=== PATIENT | male | born 1985 | race Caucasian/White ===

== ENCOUNTER 2020-02-01 10:25 | Emergency (ER) | payer SELFPAY ==
[2020-02-01] VITALS (23 sets, daily range): BP systolic 129–157; BP diastolic 93–110; PULSE 65–109; RESP 18; TEMP 37.2; O2SAT 87–100
--- NOTE | ~2020-02-01 | US_ITS ---
EXAMINATION: US abdomen limited DATE: 02/01/2020 12:20 INDICATION: Abdominal pain. Vomiting. TECHNIQUE: Multiple grayscale and Doppler ultrasound images of the abdomen were obtained. COMPARISON: None FINDINGS: The visualized portions of the head and body of the pancreas are normal. There is diffuse h epatic steatosis. There is normal flow in main portal vein. The gallbladder is normal in size and con tains sludge. No gallstones or gallbladder wall thickening. There was no sonographic Boudreaux sign. The common duct is dilated to 9 mm. IMPRESSION: 1. Mild dilatation of the common duct. 2. Gallbladder sludge. No evidence of acute cholecystitis. 3. Diffuse hepatic steatosis. Reviewed, dictated and finalized at location A.
--- NOTE | 2020-02-01 10:41 | ED.NAVMDI ---
HPI - Nausea/Vomiting/Diarrhea General Chief complaint: Nausea/Vomiting/Diarrhea Stated complaint: vomiting Time Seen by Provider: 02/01/20 10:34 Source: patient Mode of arrival: ambulatory Limitations: no limitations History of Present Illness HPI Narrative: This patient is a 34 year old male who presents for evaluation of nausea and vomiting. He states for the past month he has had daily nausea and vomiting. This generally occurs in the morning after having a lot of belching. Generally he will have vomiting in the morning, and then he states he feels better. He will be able to eat and not having any issues the rest of the day. Over the past 2 days he has had nonstop nausea and vomiting. He is unable to keep anything day. He has associated upper abdominal crampin. He has not gotten any evaluation prior to today for his symptoms. HE denies fever, diarrhea, chest xray, or shortness of breath. He denies headache, dizziness. MD elicited complaint: nausea and vomiting Related Data Allergies Allergy/AdvReac Type Severity Reaction Status Date / Time No Known Allergies Allergy Verified 02/01/20 10:28 Review of Systems Review of Systems: All systems reviewed & are unremarkable except as noted in HPI and below Constitutional: Constitutional: Reports chills, Denies fever(s) and Denies weakness ENT: Denies dizziness, Denies nasal congestion and Reports sore throat (from vomiting) Cardiovascular: Cardiovascular: Denies chest pain Respiratory: Respiratory: Denies cough and Denies dyspnea Gastrointestinal: Gastrointestinal: Reports abdominal pain, Denies constipation, Denies diarrhea, Reports nausea and Reports vomiting Genitourinary: Genitourinary: Denies hematuria and Denies oliguria Musculoskeletal: Musculoskeletal: Denies back pain PMF Past Medical History Medical History (Updated 02/01/20 @ 14:50 by Pina Lai MD) Patient denies medical problems Surgical History Surgical History (Updated 02/01/20 @ 10:42 by Pina Lai MD) History of open reduction and internal fixation (ORIF) procedure Social History Social History (Updated 02/01/20 @ 10:42 by Pina Lai MD) Smoking status: Current some day smoker Alcohol intake: current Substance use: never Gender identity (if verbalized by the patient): Male Exam Narrative: Exam Narrative: GENERAL: Well-appearing, well-nourished, and in no acute distress. HEAD: Normocephalic, atraumatic EYES: PERRLA and EOMI, conjunctiva clear without discharge THROAT:Mucous membranes moist, Oropharynx normal without erythema, exudate, peritonsillar swelling or fluctuance NECK: Supple, without lymphadenopathy or mass RESPIRATORY: No respiratory distress, Airway patent, Respirations non-labored, Clear to auscultation without rales, rhonchi or wheeze HEART: Regular rate and rhythm. No murmur heard. Normal peripheral pulses. ABDOMEN: Soft, epigastric tenderness, nondistended, normal active bowel sounds. No masses. No rebound or guarding, No organomegaly. EXTREMITIES: No edema, normal strength with full range of motion. SKIN: Warm, dry, normal color without rash NEURO: Alert and oriented x3. CN 2-12 grossly intact. No focal deficits. PSYCH: Normal mood and affect. Course Consultations Consultation #1: PAtient states he feels better. I Discussed case and labs with DR. Tse. HE states patient can follow up as outpatient. Date: 02/01/20 Time: 13:45 Vital Signs Vital signs: Vital Signs Temperature 99.0 F 02/01/20 10:29 Pulse Rate 102 H 02/01/20 10:29 Respiratory Rate 18 02/01/20 10:29 Blood Pressure 157/108 H 02/01/20 10:29 Pulse Oximetry 100 02/01/20 10:29 Temperature 99.0 F 02/01/20 10:29 Pulse Rate 109 H 02/01/20 11:19 Respiratory Rate 18 02/01/20 10:29 Blood Pressure 142/100 H 02/01/20 12:01 Pulse Oximetry 99 02/01/20 13:00 MDM - Nausea/Vomiting/Diarrhea Lab Data Attestation: I reviewed the patient
[2020-02-01 10:55] LABS: Basophils Absolute Auto 0.1 K/mm3 (0.0-0.1); Basophils Percent Auto 1.7 % (0.2-1.2); Eosinophils Absolute Auto 0.1 K/mm3 (0-0.3); Eosinophils Percent Auto 1.4 % (0-4.4); Hematocrit 40.2 % (42.0-52.0); Hemoglobin 14.8 g/dL (14.0-18.0); Immature Granulocyte Absolute 0.02 K/mm3 (0.00-0.031); Immature Granulocyte Percent A 0.2 % (0-0.5); Lymphocytes Absolute Auto 2.82 K/mm3 (0.9-3.2); Lymphocytes Percent Auto 34.8 % (18.3-44.2); Mean Corpuscular HGB Conc 36.8 g/dl (32-36); Mean Corpuscular Hemoglobin 31.4 pg (26-34); Mean Corpuscular Volume 85.2 fl (80-100); Mean Platelet Volume 9.9 fl (7.4-10.4); Monocytes Absolute Auto 0.6 K/mm3 (0.1-0.6); Monocytes Percent Auto 7.3 % (2.6-8.5); Neutrophils Absolute Auto 4.4 K/mm3 (1.3-6.7); Neutrophils Percent Auto 54.6 % (45.5-73.1); Platelet Count Result 358 k/mm3 (150-375); Red Blood Count 4.72 M/mm3 (4.6-6.20); White Blood Count 8.1 K/mm3 (4.5-10.0)
[2020-02-01] MEDS: LACTATED RINGERS 1,000 ML 999 ML IV CONT (11:11)
[2020-02-01] MEDS: PANTOPRAZOLE SODIUM IV 40 MG VIAL IV PUSH (11:11)
[2020-02-01] MEDS: ONDANSETRON INJ 4 MG/2 ML VIAL IV PUSH (11:11)
[2020-02-01 11:18] LABS: Add Urine Microscopic? YES; Appearance Urine Clear (Clear); Bacteria Urine Trace /hpf; Bilirubin Urine 1+ (Negative); Blood Urine Negative (Negative); Color Urine Amber (Yellow); Glucose Urine UA Negative (Negative); Hyaline Casts Urine 20-29 /lpf; Ketones Urine Negative (Negative); Leukocyte Esterase Ur Negative LEU/UL (Negative); Mucus Urine Heavy /lpf; Nitrate Urine Negative (Negative); Protein Urine 1+ mg/dL (Negative); RBC Urine 0-2 /hpf (0-2); Specific Grav Ur 1.029 (1.001-1.035); Squamous Epithelial Cell Urine Rare /hpf (Few)
[2020-02-01 11:43] LABS: Alanine Aminotransferase 97 U/L (4-50); Albumin Level 3.9 g/dL (3.5-5.1); Alkaline Phosphatase 158 U/L (38-126); Aspartate Amino Transferase 413 U/L (17-59); Bilirubin,Total 2.2 mg/dL (0.2-1.3); Blood Urea Nitrogen 14 mg/dL (9-20); Calcium 8.8 mg/dL (8.4-10.2); Carbon Dioxide 20 mmol/L (22-30); Chloride 101 mmol/L (98-107); Estimated CRCL calculation 118 ml/min; Estimated Glomerular Filt Rate > 60; Glucose 105 mg/dL (75-110); Lipase 207 U/L (23-300); Sodium 132 mmol/L (137-145)
--- NOTE | 2020-02-01 11:57 | PC.NURSE ---
CALLED LAB AND ADDED ON HE HEPATITIS PANEL AND PT INR PTT
[2020-02-01 12:12] LABS: Prothrombin Time 12.8 Seconds (11.1-14.7)
[2020-02-01 12:13] LABS: Partial Thromboplastin Time 33.6 SECONDS (22.3-36.8)
[2020-02-01] MEDS: SODIUM CHLORIDE 0.9% IV 1,000 ML 999 ML IV CONT (12:37)
[2020-02-01 13:01] LABS: Hepatitis B Surface Antigen Negative (Negative)
[2020-02-01 13:06] LABS: HAV RESULT Negative (Negative); Hepatitis B Core IgM Result Negative (Negative)
[2020-02-01 13:18] LABS: Hepatitis C Virus Antibody Negative (Negative)
[2020-02-01] MEDS: METOCLOPRAMIDE HCL INJ 10 MG/2 ML VIAL IV PUSH (13:30)
== END 2020-02-01 15:14 | disposition home or self-care (01) ==
PROVIDERS: Emergency Provider General Practice
DX: R11.2 Nausea with vomiting, unspecified (principal); R94.5 Abnormal results of liver function studies; K76.0 Fatty (change of) liver, not elsewhere classified; F17.210 Nicotine dependence, cigarettes, uncomplicated
CPT/HCPCS: 36415; 76705; 80053; 80074; 81001; 83690; 85025; 85610; 85730; 96361; 96374; 96375; 99284; C9113; J2405; J2765; J7030; J7120

== ENCOUNTER 2024-03-07 16:59 | Emergency (ER) | payer SELFPAY ==
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
--- NOTE | ~2024-03-07 | CT_ITS ---
EXAMINATION: CT brain wo con DATE: 03/07/2024 18:15 INDICATION: Head injury TECHNIQUE: Computed tomography (CT) of the head was performed without intravenous contrast. Sagittal and coronal reconstructions were performed. The mA was adjusted according to patient size. Iterative reconstruction technique was employed. The dose-length product was 605.33 mGy-cm. COMPARISON: head CT dated 06/11/2011 FINDINGS: No fracture. No acute intracranial hemorrhage, acute infarction or abnormal extra axial fluid collect ion. Ventricles are normal and symmetric. No mass/mass effect. The orbits, paranasal sinuses and mast oid air cells are normal. IMPRESSION: 1. Normal head CT. No fracture or acute intracranial process. Reviewed, dictated and finalized at location A.
--- NOTE | ~2024-03-07 | XR_ITS ---
EXAMINATION: XR chest 1V portable DATE: 03/07/2024 17:46 INDICATION: Rib pain and right shoulder pain TECHNIQUE: frontal view of the chest was obtained. COMPARISON: None FINDINGS: Prominent elevation right hemidiaphragm. There are airspace opacities in the right mid and lower lung zones and along the left lung base. No pleural effusion or pneumothorax. Heart size is normal. Mildl y comminuted fractures at the junction of the mid to lateral thirds of the right clavicle. IMPRESSION: 1. Elevation the right hemidiaphragm with opacities in the right mid to lower and left lower lung zon es which could represent atelectasis or pneumonia. Line 2. Mildly comminuted lateral right clavicle fracture. Reviewed, dictated and finalized at location A. IMPRESSION: 1. Elevation the right hemidiaphragm with opacities in the right mid to lower a nd left lower lung zones which could represent atelectasis or pneumonia. Line 2. Mildly comminuted lateral right clavicle fracture.
--- NOTE | ~2024-03-07 | CT_ITS ---
EXAMINATION: CT chest abdomen pelvis w con DATE: 03/07/2024 18:15 INDICATION: TECHNIQUE: Computed tomography (CT) of the chest, abdomen, and pelvis was performed without intraveno us contrast. Automated exposure control and iterative reconstruction technique were employed. The dos e-length product was 1777.80 mGy-cm. COMPARISON: None FINDINGS: CHEST CT: Elevation the right hemidiaphragm. Groundglass and linear opacities in the the bilateral lower lobes which demonstrate mild loss with bronchovascular crowding and favor atelectasis over pneumonia or pul monary hemorrhage. There is additional atelectasis in the lingula, right middle and anteroinferior ri ght upper lobes. 8 mm cavitary lesion with 1 mm thick peripheral wall in the anterobasilar segment of the right lower lobe along the major fissure which given patient age is most likely infectious or in flammatory in etiology. Very small right pleural effusion. No pneumothorax or left-sided pleural effu yolis. Heart size is normal. No pericardial effusion. Thoracic aorta is normal in caliber with no diss ection or acute traumatic aortic injury. Large amount of the central pulmonary arteries consistent wi th pulmonary arterial hypertension. No pathologically enlarged thoracic lymphadenopathy. Likely benig n 3 to 4 mm low-attenuation left thyroid nodule. Small hematoma in the soft tissues surrounding a mil dly comminuted mildly displaced fracture at the junction of the mid and lateral thirds of the right c lavicle. There is 3 mm displacement of an additional acute fracture of the posterolateral right seven th rib. There is a minimal amount of gas in the intercostal right chest wall at several levels. Chron ic appearing mild anterior wedging at T7, T8, T11 and T12. ABDOMEN/PELVIS CT: Liver, gallbladder, spleen, pancreas, bilateral adrenal glands and kidneys are normal. Bowels includi ng the appendix are normal. Small fat-containing umbilical hernia. Small fat-containing left inguinal hernia. Bladder is normal. No free intraperitoneal gas or fluid. No pathologically enlarged abdomina l or pelvic lymphadenopathy. Mild lumbar spondylosis. There are a few small bone islands in the pelvi s and bilateral femoral heads. No acute osseous or mild to . IMPRESSION: 1. Mildly displaced fracture of the lateral right clavicle and of the posterolateral right seventh ri b. 2. Bilateral lung disease with appearance and associated volume loss including elevation right hemidi aphragm which is most consistent with atelectasis, potentially related to splinting resulting from th e rib fracture. 3. No acute intra-abdominal/pelvic process. 4. 8 mm cavitary lesion with 1 mm peripheral wall in the right lower lobe most likely infectious/infl ammatory in etiology. Recommend 6 month follow-up low-dose noncontrast chest CT. Reviewed, dictated and finalized at location A. IMPRESSION: 1. Mildly displaced fracture of the lateral right clavicle and of the posterola teral right seventh rib. 2. Bilateral lung disease with appearance and associated volume loss including elevation right hemidiaphragm which is most consistent with atelectasis, potent ially related to splinting resulting from the rib fracture. 3. No acute intra-abdominal/pelvic process. 4. 8 mm cavitary lesion with 1 mm peripheral wall in the right lower lobe most likely infectious/inflammatory in etiology. Recommend 6 month follow-up low-dos e noncontrast chest CT.
[2024-03-07 17:05] VITALS: BP 108/73; PULSE 86; RESP 16; TEMP 36.8; O2SAT 100
--- NOTE | 2024-03-07 17:14 | ECG_ITS ---
Test Date: 2024-03-07 17:24:09 Measurements Intervals [place] Rate: 79 P: 50 WI: 170 QRS: 36 QRSD: 100 T: 38 QT: 344 QTc: 394 Interpretive Statements SINUS RHYTHM BASELINE ARTIFACT- I, III, AVR, AVL, AVF NORMAL ECG No previous ECG available for comparison Electronically Signed On 03-07-2024 20:23:19 CDT by Jose Call D.O.
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
[2024-03-07] MEDS: HYDROmorphone HCL INJ (*CRX) 1 MG/ML SYR IV PUSH ×2 (17:35→19:03)
[2024-03-07 17:38] LABS: Basophils Absolute Auto 0.1 K/mm3 (0.0-0.1); Basophils Percent Auto 0.4 % (0.2-1.2); Eosinophils Percent Auto 0.1 % (0-4.4); Hematocrit 40.1 % (42.0-52.0); Hemoglobin 13.3 g/dL (14.0-18.0); Immature Granulocyte Absolute 0.12 K/mm3 (0.00-0.031); Immature Granulocyte Percent A 0.6 % (0-0.5); Lymphocytes Absolute Auto 1.31 K/mm3 (0.9-3.2); Lymphocytes Percent Auto 6.7 % (18.3-44.2); Mean Corpuscular HGB Conc 33.2 g/dl (32-36); Mean Corpuscular Hemoglobin 27.9 pg (26-34); Mean Corpuscular Volume 84.1 fl (80-100); Mean Platelet Volume 10.1 fl (7.4-10.4); Monocytes Absolute Auto 0.9 K/mm3 (0.1-0.6); Monocytes Percent Auto 4.5 % (2.6-8.5); Neutrophils Absolute Auto 17.1 K/mm3 (1.3-6.7); Neutrophils Percent Auto 87.7 % (45.5-73.1); Platelet Count Result 322 k/mm3 (150-375); Red Blood Count 4.77 M/mm3 (4.6-6.20); Red Cell Distribution Width 14.8 % (11.5-14.5); White Blood Count 19.4 K/mm3 (4.5-10.0)
[2024-03-07 17:47] LABS: Prothrombin Time 13.9 Seconds (11.1-14.7)
[2024-03-07 17:48] LABS: Partial Thromboplastin Time 26.1 Seconds (22.3-36.8)
[2024-03-07 17:51] LABS: Alanine Aminotransferase 19 U/L (6-50); Albumin Level 4.7 g/dL (3.5-5.1); Alkaline Phosphatase 67 U/L (38-126); Anion Gap 11 mmol/L (4-12); Aspartate Amino Transferase 27 U/L (17-59); Bilirubin,Total 0.4 mg/dL (0.2-1.3); Blood Urea Nitrogen 16 mg/dL (9-20); Calcium 9.5 mg/dL (8.4-10.2); Carbon Dioxide 25 mmol/L (22-30); Chloride 104 mmol/L (98-107); Estimated CRCL calculation 111 ml/min; Estimated Glomerular Filt Rate > 60; Glucose 97 mg/dL (65-110); Potassium 3.7 mmol/L (3.4-5.0); Sodium 140 mmol/L (137-145)
--- NOTE | 2024-03-07 18:56 | PC.NURSE ---
Pt states unable to provide urine sample. EDP made aware
[2024-03-07 18:57] VITALS: BP 104/71; PULSE 98; RESP 24; O2SAT 95
[2024-03-07] MEDS: CYCLOBENZAPRINE HCL 10 MG TABLET PO (19:02)
[2024-03-07] MEDS: HYDROcodone/acetaminophen (*CRX) 5-325 MG TABLET 1 TAB PO (19:02)
--- NOTE | 2024-03-07 19:16 | PC.NURSE ---
Bedside report given to Ria NOBLES, all questions answered.
== END 2024-03-07 19:45 | disposition home or self-care (01) ==
PROVIDERS: Emergency Provider Emergency Medicine
DX: S22.31XA Fracture of one rib, right side, initial encounter for closed fracture (principal); S42.031A Displaced fracture of lateral end of right clavicle, initial encounter for closed fracture; F17.200 Nicotine dependence, unspecified, uncomplicated; V86.96XA Unspecified occupant of dirt bike or motor/cross bike injured in nontraffic accident, initial encounter
CPT/HCPCS: 36415; 70450; 71045; 71260; 72125; 74177; 80053; 85025; 85610; 85730; 93005; 96374; 96376; 99284; A4565; A9270; J1170; Q9967